=== PATIENT | female | born 1970 | race Caucasian/White ===

== ENCOUNTER 2016-10-09 08:32 | Emergency (ER) | payer OTHER ==
[~2016-10-09] VITALS: Wt 64.0 kg
[2016-10-09] MEDS ORDERED: KETOROLAC 30 MG INJ IM STA (08:50)
--- NOTE | 2016-10-09 09:38 | RADRPT ---
PROCEDURE: CT Brain without contrast. CLINICAL INDICATION: Left sided headache and numbness TECHNIQUE: CT scan of the brain was performed on a multidetector high-resolution CT scan. Axial im aging was obtained of the brain without contrast administration. Coronal and sagittal reformatted i mages were obtained from the axial source images. Standard CT scan of the head without contrast prot ocols were performed. The total exam CTDI equals 44.4 mGy and the total exam DLP equals 720.23 mGy-cm. One or more of the following dose reduction techniques were used: - Automated exposure control. - Adjustment of the mA and/or kV according to patient size. Use of iterative reconstruction technique. COMPARISON: None. FINDINGS: The ventricular system and peripheral CSF spaces are unremarkable. Negative for intracranial masses hemorrhages or midline shift. The recinos-white matter junction is unremarkable. The bones and marina rium are intact. The mastoids and visualized paranasal sinuses are unremarkable. IMPRESSION: No evidence of intracranial masses hemorrhages or midline shift. RPTAT:AAJJ Physician Case Date Time Electronically viewed and signed by Physician Case on 10/09/2016 09:37 /
[2016-10-09] MEDS ORDERED: ACET500C5 PO (09:55)
[2016-10-09 10:15] VITALS: BP 110/66; PULSE 77; RESP 18; TEMP 98.1
--- NOTE | 2016-10-09 10:33 | ERD ---
ER Documentation Chief Complaint Date/Time DATE: 10/09/16 TIME: 10:31 Chief Complaint L SIDE NUMBNESS FOR 2 WKS. NO NEURO DEFICIT. NO HEADACHE. 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 The symptom is intermittent, but states that has becoming more consistent last few days. Patient also complaining of left-sided headache since yesterday. She took Advil for headache, which helped slightly. Patient reports blurry vision, but no photophobia. She has headaches in the past, but have not had one for a long time. She occasionally feels pressure sensation in chest, admits to feel anxious at times. Denies fever or chills. Denies nausea or vomiting. Denies recent injuries or illness. ROS All systems reviewed and are negative except as per history of present illness. Medications Home Meds Active Scripts Acetaminophen* (Tylophen*) 500 Mg Capsule, 1 CAP PO Q6H Y for PAIN AND OR ELEVATED TEMP, #20 CAP Prov:MÓNICA REED DEAL ARCHITECT 10/09/16 Allergies Allergies: Coded Allergies: No Known Allergy (Verified , 05/05/14) PMhx/Soc Medical and Surgical Hx: pt denies Medical Hx, pt denies Surgical Hx Hx Alcohol Use: No Hx Substance Use: No Hx Tobacco Use: No Smoking Status: Never smoker Physical Exam Vitals Vital Signs Date Time Temp Pulse Resp B/P Pulse Ox O2 Delivery O2 Flow Rate FiO2 10/09/16 08:34 98.1 63 21 106/64 98 Physical Exam General: Well-developed, well-nourished, conscious and coherent, in no distress Skin: Warm and dry without rash, good texture and turgor Head: Normocephalic without evidence of trauma Eyes: Sclera and conjunctivae normal; pupils equal, round, and reactive to light; extraocular movements are intact Neck: Supple without meningismus or adenopathy. Carotids are equal. Trachea midline. No bruits or JVD Chest: Normal AP diameter. Good expansion without retractions. Nontender. Lungs are clear to auscultate bilaterally with good tidal volume Heart: Regular rate and rhythm. No murmur, rub, or gallops heard Abdomen: Soft and nontender without masses, guarding, or rebound. Bowel sounds are active. No hepatosplenomegaly Back: Without spinal or CVA tenderness Pelvis: Nontender to palpation and stable to compression Extremities: Full range of motion. Good strength bilaterally. No clubbing, cyanosis, or edema. Peripheral pulses are intact. Sensation intact Neuro: Alert and oriented 4, GCS 15. Cranial nerves II-XII intact. Equal strength in all 4 extremities. Decreased sensation in the left face and left leg, equal sensation in the upper extremities.. Moves all extremities. Speech clear. Gait normal Results 24 hrs Current Medications Medications (Trade) Dose Ordered Sig/Jeffrey Route PRN Reason Start Time Stop Time Status Last Admin Dose Admin Ketorolac Tromethamine (Toradol) 30 mg ONCE STAT IM 10/09/16 08:50 10/09/16 08:52 DC 10/09/16 09:03 PROCEDURE: CT Brain without contrast. CLINICAL INDICATION: Left sided headache and numbness TECHNIQUE: CT scan of the brain was performed on a multidetector high- resolution CT scan. Axial imaging was obtained of the brain without contrast administration. Coronal and sagittal reformatted images were obtained from the axial source images. Standard CT scan of the head without contrast protocols were performed. The total exam CTDI equals 44.4 mGy and the total exam DLP equals 720.23 mGy- cm. One or more of the following dose reduction techniques were used: - Automated exposure control. - Adjustment of the mA and/or kV according to patient size. Use of iterative reconstruction technique. COMPARISON: None. FINDINGS: The ventricular system and peripheral CSF spaces are unremarkable. Negative for intracranial masses hemorrhages or midline shift. The recinos-white matter junction is unremarkable. The bones and calvarium are intact. The mastoids and visualized paranasal sinuses are unremarkable. IMPRESSION: No evidence of intracranial masses hemorrhages or midline shift. RPTAT:AAJJ Physician Case Date Time Electronically viewed and signed by Physician Case on 10/09/2016 09:37 BM/ CC: MÓNICA REED DEAL ARCHITECT Procedures/MDM Well-appearing 46-year-old female presented ED with left-sided paresthesia on and off for last 2 weeks. She also has a left-sided headache. Toradol given to the patient in the ED for headache, patient reports improvement headache after Toradol. I have low suspicion for intracranial etiology of patient's symptoms such as stroke, intracranial mass or hemorrhage. I discussed with patient the risks and benefits of CT imaging. After discussion, patient elected to proceed with CT imaging. CT brain without IV contrast is negative. I think likely patient's symptoms are result of migraine and anxiety. Patient appears well, stable for discharge and outpatient management. Medical decision making shared with patient and family. Education provided to patient and family. Patient and family expressed understanding of the plan. Medications on discharge: Tylenol. Follow-up: Primary care provider in 2-3 days or return to ED if worse. Departure Diagnosis: Primary Impression: Headache Headache type: unspecified Headache chronicity pattern: acute headache Intractability: not intractable Qualified Code: R51 - Acute nonintractable headache, unspecified headache type Additional Impression: Numbness Condition: Stable Patient Instructions: Self-Care for Headaches, Paraesthesias Additional Instructions: Call your primary care doctor TOMORROW for an appointment during the next 2-3 days.See the doctor sooner or return here if your condition worsens before your appointment time. MÓNICA REED NP October 09, 2016 10:33
== END 2016-10-09 10:15 | disposition home or self-care (01) ==
LOC: FTE 08:32
DX: R51 Headache (principal)
CPT/HCPCS: 36415; 70450; 96372; J1885; Z7502

== ENCOUNTER 2017-02-01 14:13 | Emergency (ER) | payer OTHER ==
[~2017-02-01] VITALS: Ht 157.5 cm; Wt 68.0 kg
[~2017-02-01 14:13] MED LIST: ACET500C5 PO
[2017-02-01 14:21] VITALS: Ht 157.5 cm; Wt 68.0 kg
[2017-02-01] MEDS ORDERED: KETOROLAC 60 MG INJ IM STA (16:27)
[2017-02-01 17:06] LABS: BASOPHILS % 0.4 % (0.0-2.0); EOSINOPHILS # 0.1 10^3/ul (0.0-0.5); EOSINOPHILS % 1.9 % (0.0-7.0); HEMATOCRIT 39.1 % (37.0-47.0); HEMOGLOBIN 12.9 g/dl (12.0-16.0); LYMPHOCYTES # 2.1 10^3/ul (0.8-2.9); LYMPHOCYTES % 39.7 % (15.0-51.0); MEAN CORPUSCULAR HEMOGLOBIN 31.5 pg (29.0-33.0); MEAN CORPUSCULAR VOLUME 95.6 fl (82.0-101.0); MONOCYTE # 0.5 10^3/ul (0.3-0.9); MONOCYTES % 9.7 % (0.0-11.0); NEUTROPHILS % 48.1 % (39.0-77.0); PLATELET COUNT 247 10^3/UL (140-415); RED BLOOD COUNT 4.09 10^6/ul (4.20-5.40); RED CELL DISTRIBUTION WIDTH 13.2 % (11.5-14.5); WHITE BLOOD COUNT 5.2 10^3/ul (4.8-10.8)
--- NOTE | 2017-02-01 17:25 | RADRPT ---
PROCEDURE: US Abdomen. CLINICAL INDICATION: abdominal pain TECHNIQUE: Multiple real-time images were acquired of the patient's right upper quadrant abdomen a nd retroperitoneum utilizing a high resolution transducer. COMPARISON: CT 05/05/2014 FINDINGS: The liver demonstrates normal echogenicity. The liver is normal in size and no focal solid lesions are seen. The liver measures 13.9 cm in length. The portal vein is patent with normal direction of f low. No intrahepatic biliary dilatation is seen. No gallstones are identified within the gallbladder. There is no pericholecystic fluid or gallbladd er wall thickening. The common bile duct measures 1.2 mm in maximal dimension. The pancreas was not seen due to overlying bowel gas. No free fluid is identified. The right kidney is normal in size, and demonstrate normal echogenicity and cortical thickness. The right kidney measures 9.1 cm in long dimension. There is no evidence of hydronephrosis. There are no kidney stones. RPTAT: AA IMPRESSION: Unremarkable right upper quadrant abdominal ultrasound. .Raymond Amos MD, Date Time Electronically viewed and signed by .Raymond Amos MD, MD on 02/01/2017 17:24 .S/
[2017-02-01 17:43] LABS: ALBUMIN 4.7 g/dl (3.3-4.9); ALBUMIN/GLOBULIN RATIO 1.27; BILIRUBIN,INDIRECT 0.4 mg/dl (0-1.1); BILIRUBIN,TOTAL 0.4 mg/dl (0.2-1.3); CALCIUM 9.6 mg/dl (8.4-10.2); CREATININE 0.75 mg/dl (0.44-1.00); POTASSIUM 3.8 mmol/L (3.5-5.1); TOTAL PROTEIN 8.4 g/dl (6.1-8.1)
[2017-02-01 17:49] LABS: ADD UMIC YES; UR ASCORBIC ACID NEGATIVE (NEGATIVE); UR BACTERIA MANY /HPF (NONE SEEN); UR BILIRUBIN (Dip) NEGATIVE (NEGATIVE); UR BLOOD (Dip) NEGATIVE (NEGATIVE); UR CLARITY SLIGHTLY CLOUDY (CLEAR); UR COLOR YELLOW (YELLOW); UR GLUCOSE (Dip) 1+ mg/dL (NEGATIVE); UR KETONES (Dip) NEGATIVE (NEGATIVE); UR LEUKOCYTE ESTERASE (Dip) 3+ Leu/ul (NEGATIVE); UR NITRITE (Dip) NEGATIVE (NEGATIVE); UR RBC 10 /HPF (0-5); UR SPECIFIC GRAVITY (Dip) 1.006 (1.003-1.030); UR SQUAMOUS EPITHELIAL CELL FEW /HPF (FEW); UR TOTAL PROTEIN (Dip) NEGATIVE (NEGATIVE); UR UROBILINOGEN (Dip) NEGATIVE (NEGATIVE)
--- NOTE | 2017-02-01 18:04 | RADRPT ---
PROCEDURE: US Pelvis. CLINICAL INDICATION: Pelvic pain TECHNIQUE: Multiple sonographic images of the pelvis were obtained utilizing a transabdominal and endovaginal technique. The images were reviewed on a PACS workstation. COMPARISON: Ultrasound and CT 05/05/2014 FINDINGS: Uterus: Findings consistent with the provided history of interval hysterectomy. No evidence of flui d collection or solid mass identified Right ovary / adnexa: Normal in size estimated at 3.5 x 2.2 x 2.1 cm. No evidence for masses, norm al blood flow on Doppler interrogation. Small anechoic cysts are present measuring 1.5 x 1.1 cm, the second cyst approximately 1.3 x 1.1 cm Left ovary/adnexa: Normal in size estimated at 2.4 1.6 x 1.5 cm. No evidence for solid masses, norm al blood flow on Doppler interrogation. A small anechoic cyst measures 4.3 x 1.2 cm Cul-de-sac: No evidence of free fluid. RPTAT:HJJR IMPRESSION: 1. Small bilateral ovarian cysts with normal ovarian blood flow and no evidence of free fluid. 2. Interval hysterectomy compared to the studies of 05/05/2014. Physician Sesar Date Time Electronically viewed and signed by Physician Sesar on 02/01/2017 18:04 JR/
--- NOTE | 2017-02-01 18:43 | RADRPT ---
PROCEDURE: CT abdomen and pelvis with contrast. CLINICAL INDICATION: Abdominal pain. TECHNIQUE: Noncontrast CT examination of the abdomen and pelvis, with axial, sagittal and coronal reformatted images. CTDI: 12.56 mGy and DLP: 601.30 mGy-cm. COMPARISON: None. FINDINGS: CT abdomen: The lung bases are clear. The heart size is normal, without pericardial thickening or effusion. The liver is normal in size and density without focal mass or intrahepatic biliary dilatation. The spleen is normal in size and homogeneous in density. The stomach is partially collapsed, but is eduardo ssly unremarkable. The pancreas as visualized is normal. The gallbladder and biliary tree are unre markable and there is no evidence for biliary dilatation. The adrenal glands are symmetric and norm al. The kidneys are symmetrically unremarkable as well. No renal calculus or obstructive uropathy o r mass lesion is seen. The aorta is of normal caliber. No aortic vascular calcifications are present. There is no retrope ritoneal lymphadenopathy. The xochilt hepatis region is clear. Nonspecific mild small bowel ileus in the left abdomen. The bowel is otherwise unremarkable. No b owel obstruction. Moderate stool burden in the proximal to mid colon. CT pelvis: The small bowel loops situated within the pelvis are unremarkable. The pelvic organs are normal. T he pelvic sidewalls and inguinal regions are clear. The sigmoid colon and rectum are all unremarkab le. No mass, lymphadenopathy, or free fluid is seen. No acute inflammation is seen. The appendix is unremarkable. The surrounding osseous structures are remarkable for mild degenerative spondylosis of the spine. N o osteolytic or osteoblastic lesion is detected. IMPRESSION: 1. Nonspecific mild small bowel ileus in the left abdomen. 2. No evident bowel obstruction. 3. Moderate stool burden in the proximal to mid colon. 4. The appendix is unremarkable. RPTAT: UU Physician Natividad Date Time Electronically viewed and signed by Physician Natividad on 02/01/2017 18:43 RS/
[2017-02-01] MEDS ORDERED: CIPR500T4 PO (18:48)
--- NOTE | 2017-02-01 18:59 | ERD ---
ER Documentation Chief Complaint Date/Time DATE: 02/01/17 TIME: 18:53 Chief Complaint Complains of abdominal pain x 3 days HPI 46-year-old female coming in complaining of abdominal pain 3 days. Patient states the pain comes and goes. Patient states she has had normal urination and bowel movement with no dysuria. Last bowel movement was this morning. No vomiting, no fever, no nausea. Patient took Tylenol this morning which helped her symptoms. Patient does not know what causes her pain or resolves her pain. ROS All systems reviewed and are negative except as per history of present illness. Medications Home Meds Active Scripts Ciprofloxacin Hcl* (Ciprofloxacin Hcl*) 500 Mg Tablet, 500 MG PO BID for 7 Days , TAB Prov:MELVIN MELCHOR PA-C 02/01/17 Acetaminophen* (Tylophen*) 500 Mg Capsule, 1 CAP PO Q6H Y for PAIN AND OR ELEVATED TEMP, #20 CAP Prov:MÓNICA REED. PERFORATOR 10/09/16 Allergies Allergies: Coded Allergies: No Known Allergy (Verified , 05/05/14) PMhx/Soc Medical and Surgical Hx: pt denies Medical Hx, pt denies Surgical Hx Hx Alcohol Use: No Hx Substance Use: No Hx Tobacco Use: No Smoking Status: Never smoker Physical Exam Vitals Vital Signs Date Time Temp Pulse Resp B/P Pulse Ox O2 Delivery O2 Flow Rate FiO2 02/01/17 14:21 98.8 64 20 132/77 97 Physical Exam GENERAL: The patient is well-appearing, well-nourished, in no acute distress CHEST: Clear to auscultation bilaterally. There are no rales, wheezes or rhonchi. HEART: Regular rate and rhythm. No murmurs, clicks, rubs or gallops. No S3 or S4. ABDOMEN: Normoactive bowel sounds. Nondistended. Mild tenderness to palpation in the right upper quadrant. No rebound tenderness. No organomegaly. BACK: No midline or flank tenderness. Result Diagram: 02/01/17 1640 02/01/17 1640 Results 24 hrs Laboratory Tests Test 02/01/17 16:40 White Blood Count 5.210^3/ul Red Blood Count 4.0910^6/ul Hemoglobin 12.9g/dl Hematocrit 39.1% Mean Corpuscular Volume 95.6fl Mean Corpuscular Hemoglobin 31.5pg Mean Corpuscular Hemoglobin Concent 33.0g/dl Red Cell Distribution Width 13.2% Platelet Count 55019^3/UL Mean Platelet Volume 10.0fl Neutrophils % 48.1% Lymphocytes % 39.7% Monocytes % 9.7% Eosinophils % 1.9% Basophils % 0.4% Nucleated Red Blood Cells % 0.0/100WBC Neutrophils # (Manual) 2.510^3/ul Lymphocytes # 2.110^3/ul Monocytes # 0.510^3/ul Eosinophils # 0.110^3/ul Basophils # 0.010^3/ul Nucleated Red Blood Cells # 0.010^3/ul Urine Color YELLOW Urine Clarity SLIGHTLY CLOUDY Urine pH 6.0 Urine Specific [place] 1.006 Urine Ketones NEGATIVEmg/dL Urine Nitrite NEGATIVEmg/dL Urine Bilirubin NEGATIVEmg/dL Urine Urobilinogen NEGATIVEmg/dL Urine Leukocyte Esterase 3+Cleo/ul Urine Microscopic RBC 10/HPF Urine Microscopic WBC 12/HPF Urine Squamous Epithelial Cells FEW/HPF Urine Bacteria MANY/HPF Urine Hemoglobin NEGATIVEmg/dL Urine Glucose 1+mg/dL Urine Total Protein NEGATIVEmg/dl Sodium Level 141mmol/L Potassium Level 3.8mmol/L Chloride Level 102mmol/L Carbon Dioxide Level 27mmol/L Anion Gap 16 Blood Urea Nitrogen 7mg/dl Creatinine 0.75mg/dl Glucose Level 63mg/dl Calcium Level 9.6mg/dl Total Bilirubin 0.4mg/dl Direct Bilirubin 0.00mg/dl Indirect Bilirubin 0.4mg/dl Aspartate Amino Transf (AST/SGOT) 29IU/L Alanine Aminotransferase (ALT/SGPT) 34IU/L Alkaline Phosphatase 51IU/L Total Protein 8.4g/dl Albumin 4.7g/dl Globulin 3.70g/dl Albumin/Globulin Ratio 1.27 Lipase 97U/L Current Medications Medications (Trade) Dose Ordered Sig/Jeffrey Route PRN Reason Start Time Stop Time Status Last Admin Dose Admin Ketorolac Tromethamine (Toradol) 60 mg ONCE STAT IM 02/01/17 16:27 02/01/17 16:29 DC 02/01/17 16:27 Procedures/MDM DIAGNOSTIC IMAGING REPORT Patient: ARMANI LONGORIA : 1970 Age: 46 Sex: F MR #: [id number] DOS: 02/01/17 1748 Ordering MD: ANASTASIA MELCHOR PA-C Location: [facility] Room/Bed: PROCEDURE: CT abdomen and pelvis with contrast. CLINICAL INDICATION: Abdominal pain. TECHNIQUE: Noncontrast CT examination of the abdomen and pelvis, with axial, sagittal and coronal reformatted images. CTDI: 12.56 mGy and DLP: 601.30 mGy-cm. COMPARISON: None. FINDINGS: CT abdomen: The lung bases are clear. The heart size is normal, without pericardial thickening or effusion. The liver is normal in size and density without focal mass or intrahepatic biliary dilatation. The spleen is normal in size and homogeneous in density. The stomach is partially collapsed, but is grossly unremarkable. The pancreas as visualized is normal. The gallbladder and biliary tree are unremarkable and there is no evidence for biliary dilatation. The adrenal glands are symmetric and normal. The kidneys are symmetrically unremarkable as well. No renal calculus or obstructive uropathy or mass lesion is seen. The aorta is of normal caliber. No aortic vascular calcifications are present. There is no retroperitoneal lymphadenopathy. The xochilt hepatis region is clear. Nonspecific mild small bowel ileus in the left abdomen. The bowel is otherwise unremarkable. No bowel obstruction. Moderate stool burden in the proximal to mid colon. CT pelvis: The small bowel loops situated within the pelvis are unremarkable. The pelvic organs are normal. The pelvic sidewalls and inguinal regions are clear. The sigmoid colon and rectum are all unremarkable. No mass, lymphadenopathy, or free fluid is seen. No acute inflammation is seen. The appendix is unremarkable. The surrounding osseous structures are remarkable for mild degenerative spondylosis of the spine. No osteolytic or osteoblastic lesion is detected. IMPRESSION: 1. Nonspecific mild small bowel ileus in the left abdomen. 2. No evident bowel obstruction. 3. Moderate stool burden in the proximal to mid colon. 4. The appendix is unremarkable. DIAGNOSTIC IMAGING REPORT Patient: ARMANI LONGORIA : 1970 Age: 46 Sex: F MR #: [id number] DOS: 02/01/17 1627 Ordering MD: ANASTASIA MELCHOR PA-C Location: [facility] Room/Bed: PROCEDURE: US Abdomen. CLINICAL INDICATION: abdominal pain TECHNIQUE: Multiple real-time images were acquired of the patient's right upper quadrant abdomen and retroperitoneum utilizing a high resolution transducer. COMPARISON: CT 05/05/2014 FINDINGS: The liver demonstrates normal echogenicity. The liver is normal in size and no focal solid lesions are seen. The liver measures 13.9 cm in length. The portal vein is patent with normal direction of flow. No intrahepatic biliary dilatation is seen. No gallstones are identified within the gallbladder. There is no pericholecystic fluid or gallbladder wall thickening. The common bile duct measures 1.2 mm in maximal dimension. The pancreas was not seen due to overlying bowel gas. No free fluid is identified. The right kidney is normal in size, and demonstrate normal echogenicity and cortical thickness. The right kidney measures 9.1 cm in long dimension. There is no evidence of hydronephrosis. There are no kidney stones. RPTAT: AA IMPRESSION: Unremarkable right upper quadrant abdominal ultrasound. DIAGNOSTIC IMAGING REPORT Patient: ARMANI LONGORIA : 1970 Age: 46 Sex: F MR #: [id number] DOS: 02/01/17 1627 Ordering MD: ANASTASIA MELCHOR PA-C Location: [facility] Room/Bed: PROCEDURE: US Pelvis. CLINICAL INDICATION: Pelvic pain TECHNIQUE: Multiple sonographic images of the pelvis were obtained utilizing a transabdominal and endovaginal technique. The images were reviewed on a PACS workstation. COMPARISON: Ultrasound and CT 05/05/2014 FINDINGS: Uterus: Findings consistent with the provided history of interval hysterectomy. No evidence of fluid collection or solid mass identified Right ovary / adnexa: Normal in size estimated at 3.5 x 2.2 x 2.1 cm. No evidence for masses, normal blood flow on Doppler interrogation. Small anechoic cysts are present measuring 1.5 x 1.1 cm, the second cyst approximately 1.3 x 1.1 cm Left ovary/adnexa: Normal in size estimated at 2.4 1.6 x 1.5 cm. No evidence for solid masses, normal blood flow on Doppler interrogation. A small anechoic cyst measures 4.3 x 1.2 cm Cul-de-sac: No evidence of free fluid. RPTAT:HJJR IMPRESSION: 1. Small bilateral ovarian cysts with normal ovarian blood flow and no evidence of free fluid. 2. Interval hysterectomy compared to the studies of 05/05/2014. ER Course: IM toradol in the ED MDM: 46-year-old female coming in complaining of generalized abdominal pain 3 days. I have low suspicion for appendicitis, choledocholithiasis, cholecystitis , cholangitis, pancreatitis, bowel obstruction. I have low suspicion for pelvic emergency, including but not limited to tubo-ovarian abscess, ovarian torsion, ectopic . I have low suspicion for diverticulitis or perforated bowel. Patient has infection seen on urine dip. I will treat with urinary tract infection. I have low suspicion for pyelonephritis or septic stone. Patient is told to follow-up with primary care physician within 1-2 days for close evaluation. Patient is given strict ER precautions Departure Diagnosis: Primary Impression: UTI (urinary tract infection) Condition: Stable Patient Instructions: Understanding Urinary Tract Infections (UTIs) Additional Instructions: FOLLOW UP WITH YOUR PRIMARY CARE PHYSICIAN TOMORROW.Return to this facility if you are not improving as expected. MELVIN MELCHOR PA-C Feb 01, 2017 18:59
[2017-02-01 19:01] VITALS: BP 128/78; PULSE 58; RESP 16; TEMP 98.2
== END 2017-02-01 19:02 | disposition home or self-care (01) ==
LOC: FTE 14:13
DX: N39.0 Urinary tract infection, site not specified (principal); R10.2 Pelvic and perineal pain
CPT/HCPCS: 36415; 74176; 76705; 76830; 76856; 80053; 81001; 83690; 84703; 85025; 96372; J1885; Z7502

== ENCOUNTER 2017-07-22 14:09 | Emergency (ER) | END 2017-07-22 18:17 | disposition home or self-care (01) ==

== ENCOUNTER 2018-02-17 08:27 | Emergency (ER) | END 2018-02-17 11:05 | disposition home or self-care (01) ==

== ENCOUNTER 2018-06-19 08:21 | Emergency (ER) | payer OTHER ==
[~2018-06-19] VITALS: Wt 75.0 kg
[~2018-06-19 08:21] MED LIST changes: +CIPR500T4 PO; +DOCU-144 PO; +FAMO-96 PO; +OMEP20CA16 PO; +ONDA4TAB8 PO; +POLY17PO6 PO; +RANI150T35 PO
[2018-06-19] MEDS ORDERED: LIDOCAINE/MYLANTA 40 ML BTL PO STA (08:38)
[2018-06-19] MEDS ORDERED: BELLADONNA/PHENOBARBITAL TAB PO STA (08:38)
[2018-06-19] MEDS ORDERED: FAMO-96 PO (08:46)
[2018-06-19] MEDS ORDERED: SUCR1TAB56 PO (08:46)
--- NOTE | 2018-06-19 08:55 | ERD ---
ER Documentation Chief Complaint Chief Complaint AP X 1 WEEK HPI This is a 47-year-old female with a known history of a recent colonoscopy could be with polypectomy performed at [facility] on May 21, 2018 roughly 1 month prior to arrival. The patient had a 3 mm polyp at the 40 cm region proximal to the anus. This had been removed resected and retrieved. The patient was discharged with internal hemorrhoids and melanosis in the colon. She had been given prescriptions of Advil. She indicates she is been taking the Advil on a daily basis for the past 7 days has been experiencing epigastric discomfort. She states the epigastric pain is a retrosternal burning pain. The pain is exacerbated when she eats food. She denies any chest pressure. She denies any lower abdominal pain. She denies any hemoptysis hematemesis or melanotic stools. She denies any shortness of breath at rest or exertion. She has a postoperative appointment in 1 week but indicates she was unable to get hold of the staff at the GI physician, Dr. Jennifer Cohen, office and therefore came to the emergency department to be further evaluated. ROS All systems reviewed and are negative except as per history of present illness. Medications Home Meds Active Scripts Famotidine* (Pepcid*) 20 Mg Tablet, 20 MG PO BID for 30 Days, TAB Prov:KAILEY CANCINO MD 06/19/18 Sucralfate* (Carafate*) 1 Gm Tab, 1 GM PO AC MEALS AND BEDTIME for 30 Days, TAB Prov:KAILEY CANCINO MD 06/19/18 Ondansetron Hcl* (Zofran*) 4 Mg Tablet, 4 MG PO Q6H for NAUSEA AND/OR VOMITING, #30 TAB Prov:ÁNGEL OMALLEY PA-C 02/17/18 Acetaminophen* (Tylophen*) 500 Mg Capsule, 1 CAP PO Q6H PRN for PAIN AND OR ELEVATED TEMP, #30 CAP Prov:ÁNGEL OMALLEY PA-C 02/17/18 Docusate Sodium* (Colace*) 100 Mg Capsule, 100 MG PO TID, #30 CAP Prov:ÁNGEL OMALLEY PA-C 02/17/18 Polyethylene Glycol* (Miralax*) 17 Gm Powd.pack, 17 GM PO DAILY, #14 Prov:ÁNGEL OMALLEYC 02/17/18 Ranitidine Hcl* (Zantac*) 150 Mg Tablet, 150 MG PO BID PRN for EPIGASTRIC PAIN, #30 TAB Prov:MERCEDES XIAOC 07/22/17 Omeprazole* (Omeprazole*) 20 Mg Capsule.dr, 20 MG PO DAILY, #20 Prov:MERCEDES XIAOC 07/22/17 Discontinued Scripts Famotidine* (Pepcid*) 20 Mg Tablet, 20 MG PO BID for 10 Days, TAB Prov:ÁNGEL OMALLEYC 02/17/18 Ciprofloxacin Hcl* (Ciprofloxacin Hcl*) 500 Mg Tablet, 500 MG PO BID for 7 Days, TAB Prov:MELVIN MELCHOR PA-C 02/01/17 Acetaminophen* (Tylophen*) 500 Mg Capsule, 1 CAP PO Q6H PRN for PAIN AND OR ELEVATED TEMP, #20 CAP Prov:MÓNICA REED NP 10/09/16 Allergies Allergies: Coded Allergies: No Known Allergy (Verified , 06/19/18) PMhx/Soc History of Surgery: No Hx Neurological Disorder: No Hx Respiratory Disorders: No Hx Cardiac Disorders: No Hx Psychiatric Problems: No Hx Miscellaneous Medical Probl: No Hx Alcohol Use: No Hx Substance Use: No Hx Tobacco Use: No Physical Exam Vitals Vital Signs Date Temp Pulse Resp B/P (MAP) Pulse Ox O2 O2 Flow FiO2 Time Delivery Rate 06/19/18 98.0 74 18 126/71 99 08:23 (89) Physical Exam Constitutional:Well-developed. Well-nourished. HEENT:Normocephalic. Atraumatic.Pupils were equal round reactive to light. Moist mucous membranes.No tonsillar exudates. Neck: No nuchal rigidity. No lymphadenopathy. No posterior cervical spine tenderness or step-offs. Respiratory: Not using accessory muscles of respiration.Lungs were clear to auscultation bilaterally. No rhonchi. No rales. No wheezing. Cardiovascular: Regular rate regular rhythm.No murmurs. No rubs were appreciated.S1, S2 normal. Distal pulses are palpable 2+ bilaterally. GI: Abdomen was soft. Mild reproducible epigastric pain. Non Distended. No pulsatile abdominal masses or bruits. No rebound. No guarding. Bowel sounds were present and normal. Muscle skeletal: Full range of motion of both the upper and lower extremities b ilaterally.Normal muscle tone.No assymetrical calf tenderness or swelling. Skin: No petechia, no purpura. No lesions on the palms or the soles of the feet. No maculopapular rash. NEURO: Patient was alert, awake, orientated x3.No facial droop. Gait observed and normal with no ataxia.Speech had regular rate and rhythm. No focal neurological deficits. Result Diagram: 06/19/18 0845 Results 24 hrs Laboratory Tests Test 06/19/18 08:45 White Blood Count 6.5 10^3/ul Red Blood Count 4.09 10^6/ul Hemoglobin 12.6 g/dl Hematocrit 38.2 % Mean Corpuscular Volume 93.4 fl Mean Corpuscular Hemoglobin 30.8 pg Mean Corpuscular Hemoglobin Concent 33.0 g/dl Red Cell Distribution Width 13.0 % Platelet Count 269 10^3/UL Mean Platelet Volume 10.0 fl Immature Granulocytes % 0.200 % Neutrophils % 65.9 % Lymphocytes % 24.4 % Monocytes % 8.0 % Eosinophils % 1.2 % Basophils % 0.3 % Nucleated Red Blood Cells % 0.0 /100WBC Immature Granulocytes # 0.010 10^3/ul Neutrophils # 4.3 10^3/ul Lymphocytes # 1.6 10^3/ul Monocytes # 0.5 10^3/ul Eosinophils # 0.1 10^3/ul Basophils # 0.0 10^3/ul Nucleated Red Blood Cells # 0.0 10^3/ul Urine Color COLORLESS Urine Clarity CLEAR Urine pH 7.0 Urine Specific Donovan 1.001 Urine Ketones NEGATIVE mg/dL Urine Nitrite NEGATIVE mg/dL Urine Bilirubin NEGATIVE mg/dL Urine Urobilinogen NEGATIVE mg/dL Urine Leukocyte Esterase NEGATIVE Cleo/ul Urine Hemoglobin NEGATIVE mg/dL Urine Glucose NEGATIVE mg/dL Urine Total Protein NEGATIVE mg/dl Current Medications Medications Dose Sig/Jeffrey Start Time Status Last (Trade) Ordered Route PRN Stop Time Admin Dose Reason Admin 40 ml ONCE STAT 06/19/18 DC 06/19/18 Miscellaneous PO 08:38 08:52 Medication 06/19/18 08:41 (Gi Cocktail (2)) Belladonna/ 2 tab ONCE STAT 06/19/18 DC 06/19/18 Phenobarbital PO 08:38 08:52 () 06/19/18 08:41 Procedures/MDM The patient presented to the emergency department with epigastric pain. My differential diagnosis included but was not limited to abdominal aortic aneurysm, choledocholithiasis, gallstone ileus, renal colic, pyelonephritis, pancreatitis, peptic ulcer disease, atypical myocardical infarction, mesenteric ischemia, GERD, pulmonary infarction. The patient was placed on a desk monitor. An EKG was obtained to rule out myocardial ischemia. There was no elevation of LFTs to suggest ductal obstruction, cholangitis, cholecystiitis or hepatitis. Given that the urinalysis did not show bilirubinuria, my suspicion for common duct obstruction or hepatitis was low. 12 Lead EKG tracing ordered and reviewed by myself showed: Sinus bradycardia of 55 bpm and no arrhythmia. MI interval normal. QRS duration normal. No ST segment elevation No ST segment depression. No changes consistent with acute ischemia. I did feel that the patient's symptoms were likely result of possible peptic ulcer disease. The patient had no tenderness in the right upper quadrant therefore my clinical suspicion was low for cholelithiasis. The patient has a follow-up appointment with her GI physician in the next week to discuss the possibility of undergoing an upper endoscopy. She received a GI cocktail of viscous lidocaine and Maalox in the emergency department with significant improvement of her pain. She was instructed to stop the Advil as this could be exacerbating her symptoms. She was discharged home with sucralfate and Pepcid. The patient was discharged home in fair condition. They were instructed to return to the emergency department at any time if there was any worsening of their condition. The patient stated they would follow up with their PCP in the next 24-48 hours to initiate a suitable medication regimen un la the care of their PCP as well as to allow their PCP to monitor any drug reactions. The patient was discharged home with prescriptions after they gave informed consent to the new medication. They were also fully informed by myself on the adverse effects and adverse drug interactions in order to provide adequate safeguards to prevent possible adverse reactions to medications. Departure Diagnosis: Primary Impression: Epigastric pain Condition: Fair Patient Instructions: Peptic Ulcer Disease (All Causes) Referrals: YULIET RUELAS MD (PCP) KAILEY CANCINO MD Jun 19, 2018 08:55
[2018-06-19 10:43] VITALS: BP 128/79; PULSE 78; RESP 16
== END 2018-06-19 10:43 | disposition home or self-care (01) ==
LOC: E/R 08:21
DX: R10.13 Epigastric pain (principal)
CPT/HCPCS: 36415; 80053; 81003; 82150; 83690; 84484; 85025; 87086; 93005; Z7502; Z7610

== ENCOUNTER 2018-06-25 19:28 | Emergency (ER) | payer SELFPAY ==
[~2018-06-25 19:28] MED LIST changes: -CIPR500T4 PO; +SUCR1TAB56 PO
== END 2018-06-25 20:20 | disposition left against medical advice (07) ==
LOC: E/R 19:28
DX: Z53.21 Procedure and treatment not carried out due to patient leaving prior to being seen by health care provider (principal)